=== PATIENT | male | born 1945 | race Caucasian/White ===

== ENCOUNTER → 2017-04-07 | Outpatient (CLI) | payer OTHER ==
[~2017-04-07] VITALS: Ht 182.9 cm; Wt 81.7 kg
[~2017-04-07] MED LIST: ALPRAZOLAM0.25 MG PO; FAMOTIDINE40 MG PO; GABAPENTIN100 MG PO; HALAVEN1 MG/2 ML IV; K-Dur PO; LIPITOR5 MG PO; LISINOPRIL5 MG PO; LOSARTAN POTASS25 MG PO; NEURONTIN300 MG PO; OXYCODONE5 MG PO; POTASSIUM CHLO10 ME3 PO; PROTONIX40 MG PO; QUESTRAN PACKET4 GM PO; TOPROL XL25 MG PO; VITAMIN B125000 MCG PO
== END | disposition home or self-care (01) ==
LOC: AMB 13:18
DX: D50.8 Other iron deficiency anemias (principal); K44.9 Diaphragmatic hernia without obstruction or gangrene; Z53.09 Procedure and treatment not carried out because of other contraindication; K91.2 Postsurgical malabsorption, not elsewhere classified; C49.9 Malignant neoplasm of connective and soft tissue, unspecified; I12.9 Hypertensive chronic kidney disease with stage 1 through stage 4 chronic kidney disease, or unspecified chronic kidney disease; N18.3 Chronic kidney disease, stage 3 (moderate); E87.6 Hypokalemia; Z87.891 Personal history of nicotine dependence
CPT/HCPCS: 93005; J2250; J3010

== ENCOUNTER → 2017-05-05 | Outpatient (CLI) | payer OTHER ==
[~2017-05-05] VITALS: Ht 182.9 cm; Wt 81.7 kg
[~2017-05-05] MED LIST changes: +K-DUR20 MEQ PO
== END | disposition home or self-care (01) ==
LOC: AMB 08:30
PROC: 0DBB8ZX Excision of Ileum, Via Natural or Artificial Opening Endoscopic, Diagnostic (ICD-10-PCS; principal; 2017-05-05)
DX: K63.3 Ulcer of intestine (principal); K63.89 Other specified diseases of intestine; D64.9 Anemia, unspecified; K57.30 Diverticulosis of large intestine without perforation or abscess without bleeding; Z85.038 Personal history of other malignant neoplasm of large intestine; Z92.21 Personal history of antineoplastic chemotherapy; K91.2 Postsurgical malabsorption, not elsewhere classified; I12.9 Hypertensive chronic kidney disease with stage 1 through stage 4 chronic kidney disease, or unspecified chronic kidney disease; N18.3 Chronic kidney disease, stage 3 (moderate); Z87.891 Personal history of nicotine dependence; Z80.42 Family history of malignant neoplasm of prostate; Z80.3 Family history of malignant neoplasm of breast; Z80.51 Family history of malignant neoplasm of kidney; Z80.7 Family history of other malignant neoplasms of lymphoid, hematopoietic and related tissues
CPT/HCPCS: 88305

== ENCOUNTER 2017-11-02 17:10 | Inpatient (IN) | payer OTHER ==
[~2017-11-02] VITALS: Ht 182.9 cm; Wt 88.4 kg
[~2017-11-02 17:10] MED LIST changes: +ATIVAN0.5 MG PO; +NABI650T PO
[2017-11-02 18:30] VITALS: BP 177/73
[2017-11-02 20:11] LABS: ALBUMIN 3.7 G/DL (3.2-4.8); ALKALINE PHOSPHATASE 127 IU/L (3-129); ALT (GPT) 44 IU/L (3-49); AST (GOT) 32 IU/L (2-34); CHLORIDE 104 MEQ/L (99-109); CREATINE KINASE 367 IU/L (1-294); CREATININE 3.6 MG/DL (0.6-1.3); DIRECT BILIRUBIN 0.2 mg/dL (0.0-0.3); GFR ESTIMATE (CALCULATED) 18 mL/min/ (58.99-99999); GLUCOSE 103 mg/dL (70-99); POTASSIUM 3.5 MEQ/L (3.7-5.4); SODIUM 135 MEQ/L (136-147); TOTAL PROTEIN 6.8 G/DL (6.4-8.3); UREA NITROGEN (BUN) 35 mg/dL (9-23)
[2017-11-02 20:16] LABS: TOTAL BILIRUBIN 0.6 MG/DL (0.0-1.0)
[2017-11-02] MEDS ORDERED: TOPROL XL25 MG PO (20:19)
[2017-11-02] MEDS ORDERED: TYLENOL EXTRA500 MG PO (20:19)
[2017-11-02] MEDS ORDERED: PEPCID40 MG PO (20:20)
[2017-11-02] MEDS ORDERED: MAGNESIUM400 M1 PO (20:20)
[2017-11-02] MEDS ORDERED: KLOR-CON M2020 MEQ PO (20:20)
[2017-11-02] MEDS ORDERED: NABI650T PO (20:20)
[2017-11-02] MEDS ORDERED: GABAPENTIN100 MG PO (20:20)
[2017-11-02] MEDS ORDERED: BENEFIBER152 GM PO (20:21)
[2017-11-02 20:37] LABS: LIPASE 4 U/L (1.0-51.0); URIC ACID 4.3 mg/dL (3.1-9.2)
[2017-11-02 22:41] LABS: APPEARANCE CLEAR ((CLEAR)); BILIRUBIN NEGATIVE; BLOOD SMALL; COLOR YELLOW ((YELLOW)); GLUCOSE (STRIP) NEGATIVE; KETONES 5; LEUKOCYTES NEGATIVE; NITRITE NEGATIVE; PROTEIN (STRIP) 100; SPECIFIC GRAVITY 1.017 (1.000-1.030); UROBILINOGEN 0.2 MG/DL (0.2-1.0)
[2017-11-02 22:59] LABS: BACTERIA NONE SEEN /HPF; EPITHELIAL CELLS NONE SEEN /HPF; MUCUS NONE SEEN /LPF; RED BLOOD CELLS 0-5 /HPF (0-5); WHITE BLOOD CELLS 0-5 /HPF (0-5)
[2017-11-02 23:26] VITALS: BP 118/74
[2017-11-03 05:52] LABS: HEMATOCRIT 26.1 % (38.0-50.0); HEMOGLOBIN 8.3 G/DL (12.5-16.6); MCH 26.9 PG (29.0-34.0); MCHC 31.8 G/DL (30.0-36.0); MCV 84.7 FL (86-99); PLATELET COUNT 98 K/uL (156-360); RBC DIS.WIDTH-CV 18.4 % (11.8-14.6); RBC DIS.WIDTH-SD 56.6 % (39-53); WHITE BLOOD COUNT 5.8 K/uL (4.1-10.2)
[2017-11-03 06:02] LABS: RED BLOOD COUNT 3.08 M/uL (4.00-5.50)
[2017-11-03 06:24] LABS: ALBUMIN 3.1 G/DL (3.2-4.8); CHLORIDE 108 MEQ/L (99-109); CREATININE 3.5 MG/DL (0.6-1.3); GFR ESTIMATE (CALCULATED) 18 mL/min/ (58.99-99999); GLUCOSE 86 mg/dL (70-99); PHOSPHORUS 3.1 mg/dL (2.5-4.9); POTASSIUM 3.3 MEQ/L (3.7-5.4); SODIUM 139 MEQ/L (136-147); UREA NITROGEN (BUN) 34 mg/dL (9-23)
[2017-11-03 07:05] VITALS: BP 129/65
[2017-11-03 15:23] VITALS: BP 145/70
[2017-11-04 00:38] VITALS: BP 137/66
[2017-11-04 06:13] LABS: BASOPHIL (%) 0.4 % (0-1); EOSINOPHIL (%) 4.8 % (0-5); EOSINOPHIL COUNT 0.3 K/uL (0-0.3); HEMATOCRIT 25.9 % (38.0-50.0); HEMOGLOBIN 8.2 G/DL (12.5-16.6); LYMPHOCYTE (%) 15.9 % (15-42); LYMPHOCYTE COUNT 0.8 K/uL (1.0-2.8); MCH 26.9 PG (29.0-34.0); MCHC 31.7 G/DL (30.0-36.0); MCV 84.9 FL (86-99); MONOCYTE (%) 8.1 % (3-12); MONOCYTE COUNT 0.4 K/uL (0-0.8); NEUTROPHIL (%) 69.8 % (45-76); NEUTROPHIL COUNT 3.6 K/uL (1.8-6.4); PLATELET COUNT 91 K/uL (156-360); RBC DIS.WIDTH-CV 18.1 % (11.8-14.6); RBC DIS.WIDTH-SD 55.8 % (39-53); RED BLOOD COUNT 3.05 M/uL (4.00-5.50); WHITE BLOOD COUNT 5.2 K/uL (4.1-10.2)
[2017-11-04 06:53] LABS: AMYLASE 52 IU/L (1-118); CHLORIDE 114 MEQ/L (99-109); CREATINE KINASE 121 IU/L (1-294); CREATININE 3.3 MG/DL (0.6-1.3); GFR ESTIMATE (CALCULATED) 20 mL/min/ (58.99-99999); GLUCOSE 93 mg/dL (70-99); LIPASE 39 U/L (1.0-51.0); POTASSIUM 3.2 MEQ/L (3.7-5.4); SODIUM 142 MEQ/L (136-147); UREA NITROGEN (BUN) 28 mg/dL (9-23)
[2017-11-04 07:37] VITALS: BP 154/73
[2017-11-04 11:11] LABS: C DIFF TOXIN NEGATIVE (NEGATIVE)
[2017-11-04 15:33] VITALS: BP 141/85
[2017-11-04 23:30] VITALS: BP 113/53
[2017-11-05 06:40] LABS: BASOPHIL (%) 0.2 % (0-1); EOSINOPHIL COUNT 0.2 K/uL (0-0.3); HEMATOCRIT 23.9 % (38.0-50.0); HEMOGLOBIN 7.5 G/DL (12.5-16.6); IMMATURE GRANULOCYTE (%) 0.7 % (0.0-0.7); LYMPHOCYTE (%) 16.9 % (15-42); LYMPHOCYTE COUNT 0.7 K/uL (1.0-2.8); MCH 26.8 PG (29.0-34.0); MCHC 31.4 G/DL (30.0-36.0); MCV 85.4 FL (86-99); MONOCYTE (%) 8.7 % (3-12); MONOCYTE COUNT 0.4 K/uL (0-0.8); NEUTROPHIL (%) 68.5 % (45-76); PLATELET COUNT 79 K/uL (156-360); RBC DIS.WIDTH-SD 55.8 % (39-53); WHITE BLOOD COUNT 4.4 K/uL (4.1-10.2)
[2017-11-05 07:00] VITALS: BP 181/86
[2017-11-05 07:02] LABS: CHLORIDE 115 MEQ/L (99-109); CREATININE 3.6 MG/DL (0.6-1.3); GFR ESTIMATE (CALCULATED) 18 mL/min/ (58.99-99999); GLUCOSE 94 mg/dL (70-99); POTASSIUM 3.2 MEQ/L (3.7-5.4); SODIUM 141 MEQ/L (136-147); UREA NITROGEN (BUN) 25 mg/dL (9-23)
[2017-11-05 09:33] LABS: HEMOGLOBIN 8.5 G/DL (12.5-16.6); MCV 84.1 FL (86-99)
[2017-11-05 10:30] VITALS: BP 172/84
[2017-11-05 23:03] VITALS: BP 146/72
[2017-11-06 05:36] LABS: BASOPHIL (%) 0.5 % (0-1); EOSINOPHIL (%) 3.4 % (0-5); EOSINOPHIL COUNT 0.2 K/uL (0-0.3); HEMATOCRIT 25.6 % (38.0-50.0); HEMOGLOBIN 8.1 G/DL (12.5-16.6); IMMATURE GRANULOCYTE (%) 1.2 % (0.0-0.7); LYMPHOCYTE (%) 13.1 % (15-42); LYMPHOCYTE COUNT 0.8 K/uL (1.0-2.8); MCH 26.8 PG (29.0-34.0); MCHC 31.6 G/DL (30.0-36.0); MCV 84.8 FL (86-99); MONOCYTE (%) 7.9 % (3-12); MONOCYTE COUNT 0.5 K/uL (0-0.8); NEUTROPHIL (%) 73.9 % (45-76); NEUTROPHIL COUNT 4.3 K/uL (1.8-6.4); PLATELET COUNT 99 K/uL (156-360); RBC DIS.WIDTH-CV 18.3 % (11.8-14.6); RBC DIS.WIDTH-SD 55.6 % (39-53); RED BLOOD COUNT 3.02 M/uL (4.00-5.50); WHITE BLOOD COUNT 5.8 K/uL (4.1-10.2)
[2017-11-06 06:01] LABS: CHLORIDE 114 MEQ/L (99-109); CREATININE 3.5 MG/DL (0.6-1.3); GFR ESTIMATE (CALCULATED) 18 mL/min/ (58.99-99999); GLUCOSE 96 mg/dL (70-99); PHOSPHORUS 3.9 mg/dL (2.5-4.9); POTASSIUM 3.4 MEQ/L (3.7-5.4); SODIUM 142 MEQ/L (136-147); UREA NITROGEN (BUN) 24 mg/dL (9-23)
[2017-11-06 06:03] LABS: MAGNESIUM 1.8 mg/dl (1.3-2.7)
[2017-11-06 07:18] VITALS: BP 150/72
[2017-11-06 15:46] VITALS: BP 160/76
[2017-11-06 22:46] VITALS: BP 127/61
[2017-11-07 07:29] VITALS: BP 161/75
[2017-11-07 07:53] LABS: BASOPHIL (%) 0.4 % (0-1); EOSINOPHIL (%) 4.4 % (0-5); EOSINOPHIL COUNT 0.2 K/uL (0-0.3); HEMATOCRIT 25.9 % (38.0-50.0); HEMOGLOBIN 8.2 G/DL (12.5-16.6); LYMPHOCYTE (%) 14.7 % (15-42); LYMPHOCYTE COUNT 0.8 K/uL (1.0-2.8); MCH 26.8 PG (29.0-34.0); MCHC 31.7 G/DL (30.0-36.0); MCV 84.6 FL (86-99); MONOCYTE (%) 7.1 % (3-12); MONOCYTE COUNT 0.4 K/uL (0-0.8); NEUTROPHIL (%) 72.4 % (45-76); NEUTROPHIL COUNT 3.8 K/uL (1.8-6.4); PLATELET COUNT 101 K/uL (156-360); RBC DIS.WIDTH-CV 18.5 % (11.8-14.6); RBC DIS.WIDTH-SD 56.8 % (39-53); RED BLOOD COUNT 3.06 M/uL (4.00-5.50); WHITE BLOOD COUNT 5.2 K/uL (4.1-10.2)
[2017-11-07 08:17] LABS: CHLORIDE 112 MEQ/L (99-109); CREATININE 3.7 MG/DL (0.6-1.3); GFR ESTIMATE (CALCULATED) 17 mL/min/ (58.99-99999); GLUCOSE 102 mg/dL (70-99); IRON 30 MCG/DL (35-150); POTASSIUM 3.8 MEQ/L (3.7-5.4); SODIUM 142 MEQ/L (136-147); TRANSFERRIN (TIBC) 224.4 mg/dL (215-380); TRANSFERRIN SATUR. 13 % (20-55); UREA NITROGEN (BUN) 24 mg/dL (9-23)
[2017-11-07 09:06] LABS: INTER. NORMALIZED RATIO 1.1
[2017-11-07 09:08] LABS: PTT 29.3 SEC (25-37)
[2017-11-07 15:41] VITALS: BP 166/79; BP 182/82
[2017-11-08 01:28] VITALS: BP 135/64
[2017-11-08 06:01] LABS: BASOPHIL (%) 0.4 % (0-1); EOSINOPHIL (%) 6.6 % (0-5); EOSINOPHIL COUNT 0.4 K/uL (0-0.3); HEMATOCRIT 24.9 % (38.0-50.0); HEMOGLOBIN 8.1 G/DL (12.5-16.6); IMMATURE GRANULOCYTE (%) 0.9 % (0.0-0.7); LYMPHOCYTE (%) 16.2 % (15-42); LYMPHOCYTE COUNT 0.9 K/uL (1.0-2.8); MCH 27.3 PG (29.0-34.0); MCHC 32.5 G/DL (30.0-36.0); MCV 83.8 FL (86-99); MONOCYTE (%) 7.5 % (3-12); MONOCYTE COUNT 0.4 K/uL (0-0.8); NEUTROPHIL (%) 68.4 % (45-76); NEUTROPHIL COUNT 3.6 K/uL (1.8-6.4); PLATELET COUNT 120 K/uL (156-360); RBC DIS.WIDTH-CV 18.4 % (11.8-14.6); RBC DIS.WIDTH-SD 55.5 % (39-53); RED BLOOD COUNT 2.97 M/uL (4.00-5.50); WHITE BLOOD COUNT 5.3 K/uL (4.1-10.2)
[2017-11-08 06:25] LABS: CHLORIDE 111 MEQ/L (99-109); CREATININE 3.6 MG/DL (0.6-1.3); GFR ESTIMATE (CALCULATED) 18 mL/min/ (58.99-99999); GLUCOSE 92 mg/dL (70-99); POTASSIUM 3.3 MEQ/L (3.7-5.4); SODIUM 141 MEQ/L (136-147); UREA NITROGEN (BUN) 24 mg/dL (9-23)
[2017-11-08 07:18] VITALS: BP 142/70
[2017-11-08 17:12] VITALS: BP 140/78
[2017-11-09 01:15] VITALS: BP 134/73
[2017-11-09 05:55] LABS: BASOPHIL (%) 0.6 % (0-1); EOSINOPHIL (%) 5.6 % (0-5); EOSINOPHIL COUNT 0.3 K/uL (0-0.3); HEMATOCRIT 26.6 % (38.0-50.0); HEMOGLOBIN 8.5 G/DL (12.5-16.6); IMMATURE GRANULOCYTE (%) 1.3 % (0.0-0.7); LYMPHOCYTE (%) 12.7 % (15-42); LYMPHOCYTE COUNT 0.7 K/uL (1.0-2.8); MCV 84.4 FL (86-99); MONOCYTE (%) 8.4 % (3-12); MONOCYTE COUNT 0.5 K/uL (0-0.8); NEUTROPHIL (%) 71.4 % (45-76); NEUTROPHIL COUNT 3.8 K/uL (1.8-6.4); PLATELET COUNT 118 K/uL (156-360); RBC DIS.WIDTH-CV 18.8 % (11.8-14.6); RBC DIS.WIDTH-SD 58.5 % (39-53); RED BLOOD COUNT 3.15 M/uL (4.00-5.50); WHITE BLOOD COUNT 5.4 K/uL (4.1-10.2)
[2017-11-09 06:34] LABS: CHLORIDE 111 MEQ/L (99-109); CREATININE 3.8 MG/DL (0.6-1.3); GFR ESTIMATE (CALCULATED) 17 mL/min/ (58.99-99999); MAGNESIUM 1.6 mg/dl (1.3-2.7); POTASSIUM 3.7 MEQ/L (3.7-5.4); SODIUM 143 MEQ/L (136-147); UREA NITROGEN (BUN) 26 mg/dL (9-23)
[2017-11-09 06:39] LABS: GLUCOSE 117 mg/dL (70-99)
[2017-11-09 06:56] VITALS: BP 139/72
[2017-11-09 15:16] VITALS: BP 134/66
[2017-11-10] VITALS: BP 124/66
[2017-11-10 05:45] LABS: BASOPHIL (%) 0.7 % (0-1); EOSINOPHIL (%) 6.5 % (0-5); EOSINOPHIL COUNT 0.4 K/uL (0-0.3); HEMATOCRIT 24.9 % (38.0-50.0); HEMOGLOBIN 7.9 G/DL (12.5-16.6); IMMATURE GRANULOCYTE (%) 1.4 % (0.0-0.7); MCH 27.1 PG (29.0-34.0); MCHC 31.7 G/DL (30.0-36.0); MCV 85.6 FL (86-99); MONOCYTE COUNT 0.5 K/uL (0-0.8); NEUTROPHIL (%) 66.4 % (45-76); NEUTROPHIL COUNT 3.8 K/uL (1.8-6.4); PLATELET COUNT 127 K/uL (156-360); RBC DIS.WIDTH-CV 18.7 % (11.8-14.6); RBC DIS.WIDTH-SD 58.5 % (39-53); RED BLOOD COUNT 2.91 M/uL (4.00-5.50); WHITE BLOOD COUNT 5.7 K/uL (4.1-10.2)
[2017-11-10 06:26] LABS: CHLORIDE 112 MEQ/L (99-109); CREATININE 3.6 MG/DL (0.6-1.3); GFR ESTIMATE (CALCULATED) 18 mL/min/ (58.99-99999); GLUCOSE 93 mg/dL (70-99); SODIUM 142 MEQ/L (136-147); UREA NITROGEN (BUN) 28 mg/dL (9-23)
[2017-11-10 08:08] VITALS: BP 136/71
[2017-11-10] MEDS ORDERED: XIFAXAN550 MG PO (11:23)
[2017-11-10] MEDS ORDERED: B-12 COMPL1000 MCG/1 IM (11:31)
[2017-11-10] MEDS ORDERED: FEROSUL325 MG PO (11:31)
[2017-11-10] MEDS ORDERED: NABI650T PO (11:34)
[2017-11-10] MEDS ORDERED: SALINE FLUSH 5 M5 ML IR (11:37)
[2017-11-10] MEDS ORDERED: ENDOCET 5-3251 EACH PO (11:40)
[2017-11-10] MEDS ORDERED: ZOFRAN4 MG PO (11:40)
== END 2017-11-10 12:36 | disposition home health service (06) | DRG 683 ==
LOC: ENRESERV 17:10 → 5EAST 17:10 → EDPENDDIS 11-10 → ENPENDDIS 11-10 → 5EAST 11-10 12:36
PROVIDERS: Hospitalist; Internal Medicine; Internal Medicine Medical Oncology; Internal Medicine Nephrology; Urology
PROC: 0T9130Z Drainage of Left Kidney with Drainage Device, Percutaneous Approach (ICD-10-PCS; principal; 2017-11-02)
DX: N17.9 Acute kidney failure, unspecified (principal); N13.8 Other obstructive and reflux uropathy; N18.4 Chronic kidney disease, stage 4 (severe); I12.9 Hypertensive chronic kidney disease with stage 1 through stage 4 chronic kidney disease, or unspecified chronic kidney disease; J90 Pleural effusion, not elsewhere classified; C49.9 Malignant neoplasm of connective and soft tissue, unspecified; N13.30 Unspecified hydronephrosis; E86.0 Dehydration; E78.5 Hyperlipidemia, unspecified; E87.2 Acidosis; E87.6 Hypokalemia; R19.01 Right upper quadrant abdominal swelling, mass and lump; E03.9 Hypothyroidism, unspecified; D69.6 Thrombocytopenia, unspecified; D63.1 Anemia in chronic kidney disease; G89.29 Other chronic pain; R19.7 Diarrhea, unspecified; E53.8 Deficiency of other specified B group vitamins; F41.9 Anxiety disorder, unspecified; Z83.3 Family history of diabetes mellitus; Z90.49 Acquired absence of other specified parts of digestive tract; Z90.5 Acquired absence of kidney; Z82.0 Family history of epilepsy and other diseases of the nervous system; Z80.42 Family history of malignant neoplasm of prostate
CPT/HCPCS: 36415; 50433; 74176; 80048; 80053; 80069; 80076; 81003; 82150; 82436; 82550; 82607; 82746; 83090 90; 83540; 83690; 83735; 83921 90; 83935; 84100; 84133; 84300; 84466; 84550; 85014; 85018; 85025; 85027; 85610; 85730; 86850; 86900; 86901; 87086; 87177; 87329; 87493; 87506; 96360; C1769; J0360; J1644; J1756; J2405; J3010; J3420; J3480; J7030; J7050; S0028

== ENCOUNTER 2017-11-22 09:17 | Inpatient (IN) | payer OTHER ==
[~2017-11-22] VITALS: Ht 182.9 cm; Wt 79.5 kg
[~2017-11-22 09:17] MED LIST changes: +B-12 COMPL1000 MCG/1 IM; +BENEFIBER152 GM PO; +ENDOCET 5-3251 EACH PO; +FEROSUL325 MG PO; +KLOR-CON M2020 MEQ PO; +MAGNESIUM400 M1 PO; +PEPCID40 MG PO; +SALINE FLUSH 5 M5 ML IR; +TYLENOL EXTRA500 MG PO; +XIFAXAN550 MG PO; +ZOFRAN4 MG PO
[2017-11-22 10:27] LABS: HEMATOCRIT 33.4 % (38.0-50.0); HEMOGLOBIN 11.2 G/DL (12.5-16.6); MCH 27.9 PG (29.0-34.0); MCHC 33.5 G/DL (30.0-36.0); MCV 83.3 FL (86-99); PLATELET COUNT 110 K/uL (156-360); RBC DIS.WIDTH-CV 16.6 % (11.8-14.6); RBC DIS.WIDTH-SD 50.8 % (39-53); RED BLOOD COUNT 4.01 M/uL (4.00-5.50); WHITE BLOOD COUNT 12.7 K/uL (4.1-10.2)
[2017-11-22 10:47] LABS: APPEARANCE SL.HAZY ((CLEAR)); BILIRUBIN NEGATIVE; BLOOD LARGE; COLOR YELLOW ((YELLOW)); GLUCOSE (STRIP) 50; KETONES 5; LEUKOCYTES MODERATE; NITRITE NEGATIVE; PROTEIN (STRIP) >=500; SPECIFIC GRAVITY 1.019 (1.000-1.030); UROBILINOGEN 0.2 MG/DL (0.2-1.0)
[2017-11-22 11:02] LABS: EPITHELIAL CELLS 1+ /HPF; MUCUS NONE SEEN /LPF; RED BLOOD CELLS 30-40 /HPF (0-5); WHITE BLOOD CELLS 15-20 /HPF (0-5)
[2017-11-22 11:03] LABS: BACTERIA 1+ /HPF; UCUL ADDED? YES
[2017-11-22 11:07] LABS: ALBUMIN 4.1 G/DL (3.2-4.8); ALT (GPT) 44 IU/L (3-49); AST (GOT) 28 IU/L (2-34); CHLORIDE 96 MEQ/L (99-109); CREATININE 3.2 MG/DL (0.6-1.3); GFR ESTIMATE (CALCULATED) 20 mL/min/ (58.99-99999); GLUCOSE 152 mg/dL (70-99); POTASSIUM 3.5 MEQ/L (3.7-5.4); SODIUM 129 MEQ/L (136-147); TOTAL PROTEIN 7.5 G/DL (6.4-8.3); UREA NITROGEN (BUN) 32 mg/dL (9-23)
[2017-11-22 11:08] LABS: ALKALINE PHOSPHATASE 138 IU/L (3-129); TOTAL BILIRUBIN 1.1 MG/DL (0.0-1.0)
[2017-11-22 12:20] LABS: LIPASE 17 U/L (1.0-51.0)
[2017-11-22 13:33] LABS: INTER. NORMALIZED RATIO 1.3
[2017-11-22 13:36] LABS: PTT 27.1 SEC (25-37)
[2017-11-22 15:20] VITALS: BP 118/73
[2017-11-22 15:32] LABS: C DIFF TOXIN NEGATIVE (NEGATIVE)
[2017-11-22] MEDS ORDERED: MAG-OXIDE400 MG PO (16:17)
[2017-11-22] MEDS ORDERED: MAGNESIUM400 MG PO (16:19)
[2017-11-22 19:05] LABS: APPEARANCE CLOUDY ((CLEAR)); BILIRUBIN NEGATIVE; BLOOD MODERATE; COLOR YELLOW ((YELLOW)); GLUCOSE (STRIP) 50; KETONES NEGATIVE; LEUKOCYTES MODERATE; NITRITE NEGATIVE; PROTEIN (STRIP) >=500; SPECIFIC GRAVITY 1.017 (1.000-1.030); UROBILINOGEN 0.2 MG/DL (0.2-1.0)
[2017-11-22 19:25] LABS: RED BLOOD CELLS 40-50 /HPF (0-5)
[2017-11-22 19:26] LABS: EPITHELIAL CELLS RARE /HPF; MUCUS NONE SEEN /LPF; WHITE BLOOD CELLS 40-50 /HPF (0-5)
[2017-11-22 19:27] LABS: BACTERIA 3+ /HPF; FINE GRANULAR CASTS 0-5 /LPF
[2017-11-22 20:45] LABS: THYROTROPIN (TSH) 0.47 MIU/L (0.4-5.5)
[2017-11-22 20:51] VITALS: BP 134/79
[2017-11-23] VITALS (8 sets, daily range): BP systolic 92–124; BP diastolic 36–68
[2017-11-23 06:11] LABS: HEMATOCRIT 31.9 % (38.0-50.0); HEMOGLOBIN 10.1 G/DL (12.5-16.6); MCH 26.7 PG (29.0-34.0); MCHC 31.7 G/DL (30.0-36.0); MCV 84.4 FL (86-99); PLATELET COUNT 103 K/uL (156-360); RBC DIS.WIDTH-CV 16.7 % (11.8-14.6); RBC DIS.WIDTH-SD 51.7 % (39-53); RED BLOOD COUNT 3.78 M/uL (4.00-5.50); WHITE BLOOD COUNT 10.3 K/uL (4.1-10.2)
[2017-11-23 06:35] LABS: CHLORIDE 100 MEQ/L (99-109); CREATININE 3.6 MG/DL (0.6-1.3); GFR ESTIMATE (CALCULATED) 18 mL/min/ (58.99-99999); GLUCOSE 118 mg/dL (70-99); POTASSIUM 3.2 MEQ/L (3.7-5.4); SODIUM 134 MEQ/L (136-147); UREA NITROGEN (BUN) 39 mg/dL (9-23)
[2017-11-23 08:27] LABS: MAGNESIUM 2.2 mg/dl (1.3-2.7)
[2017-11-24 03:08] VITALS: BP 98/54
[2017-11-24 05:48] LABS: HEMATOCRIT 27.5 % (38.0-50.0); HEMOGLOBIN 8.6 G/DL (12.5-16.6); MCHC 31.3 G/DL (30.0-36.0); MCV 86.2 FL (86-99); PLATELET COUNT 93 K/uL (156-360); RBC DIS.WIDTH-CV 17.1 % (11.8-14.6); RBC DIS.WIDTH-SD 54.3 % (39-53); RED BLOOD COUNT 3.19 M/uL (4.00-5.50); WHITE BLOOD COUNT 6.1 K/uL (4.1-10.2)
[2017-11-24 06:06] LABS: CHLORIDE 109 MEQ/L (99-109); GFR ESTIMATE (CALCULATED) 16 mL/min/ (58.99-99999); GLUCOSE 96 mg/dL (70-99); POTASSIUM 3.8 MEQ/L (3.7-5.4); SODIUM 137 MEQ/L (136-147); UREA NITROGEN (BUN) 44 mg/dL (9-23)
[2017-11-24 07:40] VITALS: BP 97/52
[2017-11-24 11:46] VITALS: BP 89/56
[2017-11-24] MEDS ORDERED: DIPROSONE 0.05%15 GM TP (13:39)
[2017-11-24] MEDS ORDERED: KEYTRUDA100 MG/4 M IV (13:40)
[2017-11-24] MEDS ORDERED: CIPRO500 MG PO (13:41)
[2017-11-24 16:30] VITALS: BP 96/58
[2017-11-24 18:51] VITALS: BP 98/54
[2017-11-24 22:46] VITALS: BP 112/60
[2017-11-25 06:44] LABS: HEMATOCRIT 25.8 % (38.0-50.0); HEMOGLOBIN 8.1 G/DL (12.5-16.6); MCH 27.5 PG (29.0-34.0); MCHC 31.4 G/DL (30.0-36.0); MCV 87.5 FL (86-99); PLATELET COUNT 88 K/uL (156-360); RBC DIS.WIDTH-SD 55.5 % (39-53); RED BLOOD COUNT 2.95 M/uL (4.00-5.50); WHITE BLOOD COUNT 4.1 K/uL (4.1-10.2)
[2017-11-25 07:26] LABS: CHLORIDE 116 MEQ/L (99-109); CREATININE 3.6 MG/DL (0.6-1.3); GFR ESTIMATE (CALCULATED) 18 mL/min/ (58.99-99999); GLUCOSE 99 mg/dL (70-99); POTASSIUM 3.8 MEQ/L (3.7-5.4); SODIUM 139 MEQ/L (136-147); UREA NITROGEN (BUN) 38 mg/dL (9-23)
[2017-11-25 07:40] VITALS: BP 105/53
[2017-11-25 07:42] LABS: ANISOCYTOSIS 1+; BASOPHIL (%) 0.5 % (0-1); EOSINOPHIL (%) 5.9 % (0-5); EOSINOPHIL COUNT 0.2 K/uL (0-0.3); IMMATURE GRANULOCYTE (%) 0.7 % (0.0-0.7); LYMPHOCYTE COUNT 0.7 K/uL (1.0-2.8); MICROCYTOSIS 1+; MONOCYTE (%) 8.4 % (3-12); MONOCYTE COUNT 0.3 K/uL (0-0.8); NEUTROPHIL (%) 67.5 % (45-76); NEUTROPHIL COUNT 2.7 K/uL (1.8-6.4)
[2017-11-25 08:40] LABS: CHLORIDE 116 MEQ/L (99-109); CREATININE 3.6 MG/DL (0.6-1.3); GFR ESTIMATE (CALCULATED) 18 mL/min/ (58.99-99999); GLUCOSE 99 mg/dL (70-99); POTASSIUM 3.7 MEQ/L (3.7-5.4); SODIUM 139 MEQ/L (136-147); UREA NITROGEN (BUN) 37 mg/dL (9-23)
[2017-11-25 16:13] VITALS: BP 114/66
[2017-11-25 16:18] VITALS: BP 114/66
[2017-11-26 00:52] VITALS: BP 120/66
[2017-11-26 06:01] LABS: HEMATOCRIT 23.6 % (38.0-50.0); HEMOGLOBIN 7.5 G/DL (12.5-16.6); MCH 27.2 PG (29.0-34.0); MCHC 31.8 G/DL (30.0-36.0); MCV 85.5 FL (86-99); PLATELET COUNT 80 K/uL (156-360); RBC DIS.WIDTH-CV 16.9 % (11.8-14.6); RED BLOOD COUNT 2.76 M/uL (4.00-5.50); WHITE BLOOD COUNT 4.7 K/uL (4.1-10.2)
[2017-11-26 06:34] LABS: BASOPHIL (%) 0.4 % (0-1); EOSINOPHIL COUNT 0.3 K/uL (0-0.3); IMMATURE GRANULOCYTE (%) 0.9 % (0.0-0.7); LYMPHOCYTE (%) 16.2 % (15-42); LYMPHOCYTE COUNT 0.8 K/uL (1.0-2.8); MONOCYTE (%) 8.5 % (3-12); MONOCYTE COUNT 0.4 K/uL (0-0.8); NEUTROPHIL COUNT 3.1 K/uL (1.8-6.4); PLAT.SUFFICIENCY DECREASED
[2017-11-26 06:38] LABS: CHLORIDE 108 MEQ/L (99-109); CREATININE 3.2 MG/DL (0.6-1.3); GFR ESTIMATE (CALCULATED) 20 mL/min/ (58.99-99999); GLUCOSE 110 mg/dL (70-99); POTASSIUM 3.3 MEQ/L (3.7-5.4); SODIUM 138 MEQ/L (136-147); UREA NITROGEN (BUN) 27 mg/dL (9-23)
[2017-11-26 06:39] LABS: MAGNESIUM 1.8 mg/dl (1.3-2.7); PHOSPHORUS 2.1 mg/dL (2.5-4.9)
[2017-11-26 07:57] VITALS: BP 131/66
[2017-11-26 11:23] LABS: APPEARANCE SL.HAZY ((CLEAR)); BILIRUBIN NEGATIVE; BLOOD LARGE; COLOR YELLOW ((YELLOW)); GLUCOSE (STRIP) 50; KETONES NEGATIVE; LEUKOCYTES MODERATE; NITRITE NEGATIVE; PROTEIN (STRIP) 100; SPECIFIC GRAVITY 1.014 (1.000-1.030); UROBILINOGEN 0.2 MG/DL (0.2-1.0)
[2017-11-26 11:32] LABS: BACTERIA RARE /HPF; EPITHELIAL CELLS NONE SEEN /HPF; MUCUS TRACE /LPF; RED BLOOD CELLS TNTC /HPF (0-5)
[2017-11-26 16:58] VITALS: BP 128/65
[2017-11-26 18:04] LABS: HEMATOCRIT 24.5 % (38.0-50.0); HEMOGLOBIN 7.8 G/DL (12.5-16.6); MCV 84.8 FL (86-99)
[2017-11-26 20:25] VITALS: BP 115/63
[2017-11-26 23:32] VITALS: BP 116/62
[2017-11-27 06:21] LABS: HEMATOCRIT 23.5 % (38.0-50.0); HEMOGLOBIN 7.4 G/DL (12.5-16.6); MCH 26.9 PG (29.0-34.0); MCHC 31.5 G/DL (30.0-36.0); MCV 85.5 FL (86-99); PLATELET COUNT 89 K/uL (156-360); RBC DIS.WIDTH-CV 16.6 % (11.8-14.6); RBC DIS.WIDTH-SD 52.5 % (39-53); RED BLOOD COUNT 2.75 M/uL (4.00-5.50); WHITE BLOOD COUNT 4.1 K/uL (4.1-10.2)
[2017-11-27 06:45] LABS: CHLORIDE 111 MEQ/L (99-109); GFR ESTIMATE (CALCULATED) 22 mL/min/ (58.99-99999); GLUCOSE 98 mg/dL (70-99); PHOSPHORUS 2.5 mg/dL (2.5-4.9); POTASSIUM 3.6 MEQ/L (3.7-5.4); SODIUM 143 MEQ/L (136-147); UREA NITROGEN (BUN) 18 mg/dL (9-23)
[2017-11-27 07:38] VITALS: BP 119/55
[2017-11-27 15:55] VITALS: BP 122/60
== END 2017-11-27 17:21 | disposition home or self-care (01) | DRG 872 ==
LOC: EME 09:17 → EDOF 13:41 → 5EAST 13:41 → ENRESERV 13:49 → 5EAST 15:08
PROVIDERS: Family Medicine; Internal Medicine Nephrology; Physician Assistant; Urology
DX: A41.9 Sepsis, unspecified organism (principal); D63.1 Anemia in chronic kidney disease; F41.9 Anxiety disorder, unspecified; E87.1 Hypo-osmolality and hyponatremia; N30.91 Cystitis, unspecified with hematuria; E87.6 Hypokalemia; C49.9 Malignant neoplasm of connective and soft tissue, unspecified; E83.39 Other disorders of phosphorus metabolism; N13.1 Hydronephrosis with ureteral stricture, not elsewhere classified; R53.83 Other fatigue; I10 Essential (primary) hypertension; E78.5 Hyperlipidemia, unspecified; N17.9 Acute kidney failure, unspecified; R19.00 Intra-abdominal and pelvic swelling, mass and lump, unspecified site; E53.8 Deficiency of other specified B group vitamins; R31.9 Hematuria, unspecified; I12.9 Hypertensive chronic kidney disease with stage 1 through stage 4 chronic kidney disease, or unspecified chronic kidney disease; R63.0 Anorexia; N18.4 Chronic kidney disease, stage 4 (severe); E86.0 Dehydration; E87.2 Acidosis; R19.7 Diarrhea, unspecified; R11.2 Nausea with vomiting, unspecified; Z96.0 Presence of urogenital implants; N18.3 Chronic kidney disease, stage 3 (moderate); K21.9 Gastro-esophageal reflux disease without esophagitis; Z90.49 Acquired absence of other specified parts of digestive tract; Z90.5 Acquired absence of kidney; Z92.21 Personal history of antineoplastic chemotherapy; Z92.3 Personal history of irradiation; Z80.42 Family history of malignant neoplasm of prostate; Z87.891 Personal history of nicotine dependence; Z87.440 Personal history of urinary (tract) infections
CPT/HCPCS: 74176; 80048; 80048 91; 80053; 81003; 83605; 83690; 83735; 84100; 84439; 84443; 85014; 85018; 85025; 85027; 85610; 85730; 86850; 86900; 86901; 86920; 87040; 87086; 87493; 93005; 99281; 99284; J0696; J1644; J2405; J2543; J3420; J3480; J7030; J7040; J7050; J7070

== ENCOUNTER 2018-01-23 18:57 | Emergency (ER) | payer OTHER ==
[~2018-01-23] VITALS: Ht 182.9 cm; Wt 87.1 kg
[~2018-01-23 18:57] MED LIST changes: +CIPRO500 MG PO; +DIPROSONE 0.05%15 GM TP; +KEYTRUDA100 MG/4 M IV; +MAG-OXIDE400 MG PO; +MAGNESIUM400 MG PO
[2018-01-23 19:50] VITALS: BP 138/65
== END 2018-01-23 19:52 | disposition home or self-care (01) ==
LOC: EME 18:57
DX: T83.038A Leakage of other urinary catheter, initial encounter (principal); I12.9 Hypertensive chronic kidney disease with stage 1 through stage 4 chronic kidney disease, or unspecified chronic kidney disease; N18.9 Chronic kidney disease, unspecified; E78.5 Hyperlipidemia, unspecified; J43.9 Emphysema, unspecified; K21.9 Gastro-esophageal reflux disease without esophagitis; F41.9 Anxiety disorder, unspecified; Z87.891 Personal history of nicotine dependence; Z85.831 Personal history of malignant neoplasm of soft tissue; Z92.21 Personal history of antineoplastic chemotherapy; Z92.3 Personal history of irradiation; Z90.49 Acquired absence of other specified parts of digestive tract; Z90.5 Acquired absence of kidney; Z88.8 Allergy status to other drugs, medicaments and biological substances
CPT/HCPCS: 99281; 99284